=== PATIENT | male | born 1960 | race Caucasian/White ===

== ENCOUNTER 2017-09-22 20:42 | Emergency (ER) | payer SELFPAY ==
[~2017-09-22] VITALS: Ht 185.4 cm; Wt 69.8 kg
[2017-09-22 20:56] VITALS: Ht 185.4 cm; Wt 69.8 kg
[2017-09-23 00:27] VITALS: BP 127/80
== END 2017-09-23 00:27 | disposition home or self-care (01) ==
LOC: ED 20:42
DX: M54.10 Radiculopathy, site unspecified (principal); I10 Essential (primary) hypertension
CPT/HCPCS: J1885